=== PATIENT | female | born 2000 | race Caucasian/White ===

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

== ENCOUNTER 2018-05-08 23:09 | Emergency (ER) | payer MEDICAID ==
[2018-05-08 23:24] VITALS: BP 118/89
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
== END 2018-05-08 23:47 | disposition home or self-care (01) ==
LOC: ED 23:09
DX: F32.9 Major depressive disorder, single episode, unspecified (principal)
CPT/HCPCS: 99282; 99283

== ENCOUNTER 2018-11-07 12:03 | Outpatient (CLI) | payer MEDICAID ==
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
== END 2018-11-07 12:04 | disposition home or self-care (01) ==
LOC: DI 12:03
PROVIDERS: ATTEND Family Medicine
DX: S69.91XA Unspecified injury of right wrist, hand and finger(s), initial encounter (principal)

== ENCOUNTER 2021-10-17 16:52 | Outpatient (CLI) | payer MEDICAID ==
--- NOTE | 2021-10-17 20:44 | Ultrasound Report ---
PROCEDURE: Pelvic w/Transvaginal INDICATIONS: MENOMETRORRHAGIA, PELVIC PAIN TECHNIQUE: Real-time scanning was performed of the pelvic organs, with image documentation. Additional endovagi nal scanning was necessary due to incomplete visualization of the adnexal and endometrial structures by transabdominal scanning. COMPARISON: None. FINDINGS: No pathologic free abdominal or pelvic fluid. Uterus: Uterus is anteverted normal in size at 6.7 x 3.9 x 2.6 cm, volume of 35 cc. No fibroids seen . Myometrium is homogeneous. The endometrium measures 7 mm in combined thickness. Ovaries: Within normal limits. Blood flow seen in both ovaries. Right ovary measures 3.6 x 3.5 x 2.1 cm, volume of 14 cc. Dominant right ovarian follicle measuring 1.9 cm. Left ovary measures 3.3 x 2 x 1.5 cm, volume of 5 cc. IMPRESSION: 1. Normal sonographic appearance of the uterus and endometrium. 2. Dominant right ovarian follicle measuring 1.9 cm. Reviewed by: Gerry Barragan MD on 10/17/2021 8:43 PM PST Approved by: Gerry Barragan MD on 10/17/2021 8:43 PM PST Station ID: [id number]
== END 2021-10-17 16:53 | disposition home or self-care (01) ==
LOC: DI 16:52
PROVIDERS: ATTEND Family Medicine
DX: N92.1 Excessive and frequent menstruation with irregular cycle (principal)

== ENCOUNTER 2023-07-25 16:37 | Outpatient (CLI) | payer MEDICAID ==
--- NOTE | 2023-07-25 19:23 | Ultrasound Report ---
PROCEDURE: OB Limited INDICATIONS: STATE, INCIDENTAL OUTSIDE/PRIOR DATING DATA: Last menstrual period (LMP): 03/04/2023. LMP-based estimated date of delivery (JAYRO): 12/09/2023. First dating scan (date and location): Not applicable. Estimated date of delivery (JAYRO) from first dating scan: Not applicable. TECHNIQUE: Real-time scanning was performed of the fetus, with image documentation. Endovaginal scanning: Not performed COMPARISON: None. FINDINGS: A single living intrauterine gestation is present. Presentation: Variable Placenta: Placental position is anterior, without previa. There is an ill-defined, hypoechoic focus within the anterior aspect of the placenta measuring approximately 4.7 x 1.2 x 2.5 cm. There is adjac ent and peripheral vascularity. No evidence for abnormal fluid superficial to the placental surface. Amniotic fluid index: 20.1 cm, 92nd percentile for gestational age. Largest vertical pocket measures 6.25 cm heart rate: 144 beats per minutes. Maternal cervical canal: 3.25 cm long; normal length is 2.5 cm or more. Incidental visualization of pelviectasis of the bilateral renal kidneys with the left side being more pronounced than the right. IMPRESSION: 1. Single living intrauterine gestation with clinically estimated gestational age of approximately 20 weeks and 3 days. 2. There is a ill-defined 4.7 cm x 1.2 cm x 2.5 cm hypoechoic focus within the anterior margin of the placenta demonstrating adjacent and peripheral vascularity. This is in close vicinity to patient dir ected area of pain and reported trauma. Findings may represent intraplacental placenta abruption. No findings to suggest retroplacental hemorrhage. Recommend close clinical surveillance and short interv al follow-up imaging as needed. Consider short interval follow-up ultrasound for assessment of amniot ic fluid index, growth, and maternal cervical length 3. Bilateral renal pelviectasis. Recommend follow-up at time of anatomy screening survey. If persistent, recommend follow-up ultrasound at 32 weeks estimated gestational age. Preliminary findings were reported to the ordering physician by the skiver machine operator at time of study comp letion. Reviewed by: Shashank Shelton MD on 07/25/2023 7:22 PM PST Approved by: Shashank Shelton MD on 07/25/2023 7:22 PM PST Station ID: [id number]
== END 2023-07-25 16:38 | disposition home or self-care (01) ==
LOC: DI 16:37
PROVIDERS: ATTEND Midwife
DX: S39.001A Unspecified injury of muscle, fascia and tendon of abdomen, initial encounter (principal); R93.89 Abnormal findings on diagnostic imaging of other specified body structures; Z33.1 Pregnant state, incidental

== ENCOUNTER 2023-07-25 18:26 | Outpatient (CLI) | payer MEDICAID | END 2023-07-25 18:27 | disposition home or self-care (01) | LOC: LAB 18:26 | PROVIDERS: ATTEND Midwife | DX: Z53.9 Procedure and treatment not carried out, unspecified reason (principal) ==

== ENCOUNTER 2023-07-30 15:52 | Outpatient (CLI) | payer MEDICAID ==
--- NOTE | 2023-07-31 16:22 | Ultrasound Report ---
PROCEDURE: OB Detailed Eval INDICATIONS: STATE OUTSIDE/PRIOR DATING DATA: Last menstrual period (LMP): 03/04/2023. LMP-based estimated date of delivery (JAYRO): 12/09/2023. First dating scan (date and location): Unknown. Estimated date of delivery (JAYRO) from first dating scan: 12/09/2023. The below data below was generated using the clinical/ultrasound JAYRO of 12/09/2023 TECHNIQUE: Real-time scanning was performed of the fetus, with image documentation and biometric measurements. COMPARISON: OB ultrasound 07/25/2023 FINDINGS: General: A single living intrauterine gestation is present. Presentation: Vertex Placenta: Placental position is anterior, without previa. Placental focus of echogenicity is unchan ged. Amniotic fluid index: 20 cm, within normal limits for gestational age. heart rate: 136 beats per minute. Maternal cervical canal: 4. cm long; normal length is 2.5 cm or more. biometrics: Biparietal diameter: 5.3 cm 22 weeks 1 day 84th percentile Head circumference: 19.7 cm 21 weeks 6 days 73rd percentile Abdominal circumference: 17.8 cm 22 weeks by dates 87th percentile Femur length: 3.6 cm 21 weeks 2 days 45th percentile Estimated gestational age from initial scan: 21 weeks 1 day Composite gestational age from present scan: 21 weeks 6 days Estimated weight and percentile: 471 g, 88th percentile Measurement variability in biometric dating: +/- 10 days from 12-20 weeks gestation, +/- 2 weeks from 20-30 weeks gestation, +/- 3 weeks at 30 weeks gestation or later. Anatomic survey: Neuro: Ventricles are normal at less than 10 mm. Cisterna magna is normal at 3-11 mm. Cerebellum i s normal in size and morphology. Nuchal skin fold: Normal at less than 6 mm between 14 and 20 weeks gestational age. Face: Nose and lips, facial profile are not well seen. Spine: No evidence for spina bifida. Heart: 4-chambered heart is present, with normal ventricular outflow tracts. Diaphragm: Diaphragm is intact. Stomach: Left-sided stomach is present. Kidneys: Mild appearance of pelvocaliectasis. Cord: 3 vessel cord has orthotopic insertion. Bladder: Normal in size. Extremities: All 4 extremities are visualized. IMPRESSION: Persistent appearance of pelvic caliectasis. Unchanged appearance of focus of heterogeneous echogenicity within the placenta. This overall remains nonspecific and could be related to trauma. However, there is no interval progression. Reviewed by: Melissa Kovacs MD on 07/31/2023 4:20 PM PST Approved by: Melissa Kovacs MD on 07/31/2023 4:20 PM PST Station ID: [id number]
== END 2023-07-30 15:53 | disposition home or self-care (01) ==
LOC: DI 15:52
PROVIDERS: ATTEND Midwife
DX: Z36.3 Encounter for antenatal screening for malformations (principal); O35.EXX0 Maternal care for other (suspected) fetal abnormality and damage, fetal genitourinary anomalies, not applicable or unspecified; Z3A.21 21 weeks gestation of pregnancy

== ENCOUNTER 2023-08-19 23:12 | Outpatient (CLI) | payer MEDICAID ==
[2023-08-19] MEDS ORDERED: ACETAMINOPHEN 500 MG TABLET PO SCH (23:45)
[2023-08-20 00:03] VITALS: O2SAT 97
[2023-08-20 00:25] LABS: BASOPHILS # (AUTO) 0.1 10^3/uL (0.0-0.1); BASOPHILS % (AUTO) 0.5 %; EOSINOPHILS # (AUTO) 0.2 10^3/uL (0.0-0.7); EOSINOPHILS % (AUTO) 1.9 %; HCT - HEMATOCRIT 37.1 % (37.0-47.0); HGB - HEMOGLOBIN 12.4 g/dL (12.0-16.0); LYMPHOCYTES # (AUTO) 2.6 10^3/uL (1.5-3.5); LYMPHOCYTES % (AUTO) 24.8 %; MEAN CORPUSCULAR HEMOGLOBIN 28.2 pg (27.0-31.0); MEAN CORPUSCULAR HGB CONC 33.4 g/dL (32.0-36.0); MEAN CORPUSCULAR VOLUME 84.3 fL (81.0-99.0); MEAN PLATELET VOLUME 9.3 fL (7.9-10.8); MONOCYTES % (AUTO) 9.3 %; NEUTROPHILS # (AUTO) 6.4 10^3/uL (1.5-6.6); NEUTROPHILS % (AUTO) 62.4 %; PLT - PLATELET COUNT 334 10^3/uL (130-450); RED CELL DISTRIBUTION WIDTH 14.2 % (12.0-15.0); WHITE BLOOD COUNT 10.3 x10^3/uL (4.8-10.8)
--- NOTE | 2023-08-20 00:44 | PROVIDER PROGRESS NOTE ---
- HPI Chief Complaint: Pain, non-labor Current : Vital Signs Temperature 97.8 F 08/19/23 23:24 Heart Rate 88 08/19/23 23:24 Respiratory Rate 20 08/19/23 23:24 Blood Pressure 107/64 08/19/23 23:24 O2 Saturation 97 08/19/23 23:24 Temperature 97.8 F 08/19/23 23:43 Heart Rate 88 08/19/23 23:43 Respiratory Rate 20 08/19/23 23:43 Blood Pressure 107/64 08/19/23 23:43 O2 Saturation 97 08/19/23 23:24 If not protocol: Oxygen Flow, liters/minute Pt presented with sudden onset upper abdominal pain - constant, sharp, and severe - after eating prime rib, gravy, large lorraine dinner around 7:30 and pain started around 10pm. she also had this pain when she had the abdominal trauma / dog encounter earlier in the -- which is when her placental abruption was noted. she is feeling a little bit better now, though still hurts to walk. given tylenol here, +FM, -VB, - LOF, pain is constant - not contractions. - Exam VSS NAD Conjunctiva pink, pale sclera +S1, S2, CTAB, no increased work of breathing Abd soft, NT, ND, visibly gravid at periviability -- with pushing on right upper quadrant. EFM: 145,mod edu, reassuring at 24w, + A cells 10 x 10s no D cells, reactive [place]: acontractile Cx: deferred Ext: neg CCE - Procedures OB Procedure Performed: NST Diagnosis/Indication for NST: Other NST Procedure: NST 145 mod edu + A cells (10 x 10) no D cells Service Date of procedure: 08/20/23 Findings: reassuring and reactive NST - Plan Plan: ANL: B+ ANC c/b: 1. placental abruption - by Ez funez - after abdominal trauma appx 2 weeks ago stable, no bleeding, good movement has MFM U/S / appt this week 2. 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 stopped since abruption PMH: denies - had "respiratory stuff" as a kid, which resolved PSH: denies POB: G1 PGYN: h/o ASCUS pap - has paps more frequently -- presumed history as patient explained "cells are abnormal shaped so they have to check them more closely" no h/o problems with ovaries or uterus Meds: PNV All: NKDA Soc: neg x4 Fam: her dad has heart conditions that "are his own fault, not genetic." US today -- baby reassuring, though SUKHDEV 25. placental concern seen previously x2 has now been resolved given tylenol awaiting lab reports. if wnl, OK to D/C home with gallbladder precautions did review gallbladder causes of pain and prevention of pain pt at baseline eats a lot of "steaks"-- reviewed fat-free options. She also enjoys fruits. reviewed labs - wnl. Given K-dur for low K+ x1 OK to D/C home, precautions reviewed.
[2023-08-20 00:52] LABS: PARTIAL THROMBOPLASTIN TIME 26.8 secs (24.9-33.3)
[2023-08-20 00:57] LABS: PT - PROTHROMBIN TIME 10.4 secs (9.9-12.6)
[2023-08-20 01:05] LABS: ALBUMIN/GLOBULIN RATIO 1.5 (1.0-2.2); AMYLASE 42 U/L (28-100); BILIRUBIN,TOTAL 0.2 mg/dL (0.2-1.0); CREATININE 0.5 mg/dL (0.6-1.3); LIPASE 22 U/L (11-82); POTASSIUM 3.4 mmol/L (3.5-4.5); TOTAL PROTEIN 6.7 g/dL (6.4-8.9)
[2023-08-20 01:05] LABS: BILIRUBIN,URINE NEGATIVE (NEGATIVE); GLUCOSE, URINE (UA) NEGATIVE (NEGATIVE); KETONES,URINE (UA) NEGATIVE (NEGATIVE); LEUKOCYTE ESTERASE, URINE NEGATIVE (NEGATIVE); NITRITE,URINE NEGATIVE (NEGATIVE); OCCULT BLOOD,URINE NEGATIVE (NEGATIVE); PH,URINE 6.5 PH (5.0-7.5); PROTEIN,URINE NEGATIVE (NEGATIVE); UROBILINOGEN,URINE 0.2 (NORMAL) E.U./dL (NORMAL)
[2023-08-20 01:18] LABS: CLARITY,URINE CLEAR (CLEAR); RBC,URINE 0-5 /HPF (0-5); WBC,URINE 0-3 /HPF (0-5)
[2023-08-20 01:19] LABS: BACTERIA,URINE Rare /HPF (None Seen); SQUAMOUS EPITHELIAL CELL,UR FEW Squamous (<= Few)
[2023-08-20] MEDS ORDERED: POTASSIUM CHLORIDE 20 MEQ TABLET PO ONE (01:24)
--- NOTE | 2023-08-20 01:44 | Ultrasound Report ---
PROCEDURE: OB Limited INDICATIONS: Upper abdominal pain at 24 wks OUTSIDE/PRIOR DATING DATA: Last menstrual period (LMP): 03/04/2023. LMP-based estimated date of delivery (JAYRO): 12/09/2023. First dating scan (date and location): Not available Estimated date of delivery (JAYRO) from first dating scan: Not available. The below data below was generated using the clinical JAYRO of 12/09/2023 TECHNIQUE: Real-time scanning was performed of the fetus, with image documentation. COMPARISON: Ultrasound 07/30/2023, 07/25/2023, 10/17/2021. FINDINGS: A single living intrauterine gestation is present. Presentation: Vertex Placenta: Placental position is anterior, without previa. Previously described heterogeneous focus w ithin the placenta is not visualized on current exam. Prominent placental nixon is visualized measurin g 3.2 x 1.1 cm. Amniotic fluid index: 25.1cm, increased just above the upper limits of normal (25.0 cm) heart rate: 147 beats per minutes. Maternal cervical canal: Not evaluated. Estimated gestational age from initial scan: 24 weeks, 0 days. Limited anatomy demonstrates decreased bilateral renal pelviectasis now measuring 6 mm on the r ight, previously 8.7 mm and 6.5 mm on the left, previously 7.7 mm. IMPRESSION: Single intrauterine gestation in vertex position. Decreased pelvic caliectasis. Prominent placental nixon measuring up to 3.2 cm. Previously described intraplacental heterogeneous fo cus was not definitively visualized on current exam. Increased SUKHDEV measuring 25.1 cm with largest pocket measuring 7.7 cm. Recommend short interval ultrasound follow-up. Reviewed by: Batsheva Rivas MD on 08/20/2023 1:43 AM PST Approved by: Batsheva Rivas MD on 08/20/2023 1:43 AM PST Station ID: [id number]
[2023-08-20 02:02] VITALS: BP 103/65
== END 2023-08-20 01:53 | disposition home or self-care (01) ==
LOC: WFO 23:12 → FBP 23:13 → WFO 08-20 01:53
PROVIDERS: ATTEND Obstetrics & Gynecology
DX: O99.891 Other specified diseases and conditions complicating pregnancy (principal); R10.10 Upper abdominal pain, unspecified; O45.92 Premature separation of placenta, unspecified, second trimester; Z3A.24 24 weeks gestation of pregnancy
CPT/HCPCS: 36415; 76815; 80053; 81001; 82150; 83690; 85025; 85384; 85610; 85730; 86850; 86900; 86901; 99214; A9270; 87086